=== PATIENT | female | born 1955 | race Caucasian/White ===

== ENCOUNTER 2020-07-07 19:12 | Outpatient (CLI) | payer MEDICARE | END 2020-07-07 19:13 | disposition critical access hospital (66) | LOC: EMS 19:12 | PROVIDERS: ATTEND Surgery | DX: R29.898 Other symptoms and signs involving the musculoskeletal system (principal) | CPT/HCPCS: A0425; A0429 ==

== ENCOUNTER 2020-07-07 19:48 | Emergency (ER) | payer MEDICARE ==
--- NOTE | 2020-07-07 20:05 | ED Physician Documentation ---
PD HPI FOCAL NEURO - Stated complaint Stated Complaint: R LEG NUMBNESS - Chief complaint Chief Complaint: Neuro - History obtained from History obtained from: Patient - History of Present Illness Timing - onset: How many minutes ago (30), Today Timing - duration: Minutes (she had been sitting for not too long, in regular position, and as she got up, noted her right leg feeling weak and not supporting her well. Not mainly from knee down, with some numbness in the foot. She says she held onto furniture and wall to keep from falling and did not feel any weakness in arms) Timing - details: Abrupt onset, Still present (improving enroute) Severity of deficit: Moderate Weakness: Leg, Foot, Right. No: Face, Arm Numbness: Foot, Right, Other (she says she went to mirror and smiled and moved arms to ensure no drooping nor weakness there.). No: Face, Arm Associated symptoms: Fall (2 days ago tripped and fell and struck uribe, with some abrasion and bruising there, but no weakness/numbness of leg at that time.). No: Headache, Nausea / vomiting Contributing factors: negative: Anticoagulated Baseline status: positive: A&OX3, ambulatory, indep Similar symptoms before: Has not had sx before Recently seen: Not recently seen Review of Systems Constitutional: denies: Fever, Chills, Myalgias Eyes: denies: Loss of vision, Decreased vision Nose: denies: Rhinorrhea / runny nose, Congestion Throat: denies: Sore throat Cardiac: denies: Chest pain / pressure, Palpitations Respiratory: denies: Dyspnea, Cough GI: denies: Abdominal Pain, Nausea, Vomiting, Diarrhea Musculoskeletal: denies: Neck pain, Back pain, Extremity pain Neurologic: reports: Focal weakness (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 denies: Near syncope, Syncope PD PAST MEDICAL HISTORY - Past Medical History Past Medical History: No Cardiovascular: None Respiratory: None Neuro: None Endocrine/Autoimmune: None - Present Medications Home Medications: Ambulatory Orders Medication Instructions Recorded Confirmed No Known Home Medications 07/07/20 07/07/20 - Allergies Allergies/Adverse Reactions: Allergies Allergy/AdvReac Type Severity Reaction Status Date / Time Penicillins Allergy Intermediate Hives Verified 07/07/20 20:06 PD ED PE NORMAL - Vitals Vital signs reviewed: Yes - General General: Alert and oriented X 3, No acute distress (not in any pain but does seem somewhat anxious about her symptoms. ), Well developed/nourished - Neck Neck: Supple, no meningeal sign, No adenopathy - Cardiac Cardiac: RRR, No murmur - Respiratory Respiratory: Clear bilaterally - Abdomen Abdomen: Normal bowel sounds, Soft, Non tender - Back Back: No CVA TTP, No spinal TTP - Derm Derm: Normal color, Warm and dry, No rash - Extremities Extremities: Other (There is superficial abrasion and some old bruising in the anterior portion of the lower leg. No obvious deformity. Passive range of motion of the hip and knee are both normal. Active range of motion is good and strong. She stands bedside for the commode on her own.) - Neuro Neuro: Alert and oriented X 3, No motor deficit (She seems to have good strength and movement of her right leg. She is able to lift it at the hip and flex and extend at the knee and range of motion of the ankle. She states it feels just slightly off from normal), No sensory deficit (She feels some numbness in the foot and ankle but she has sensory testing to touch in dermatomal distribution. Normal knee reflex.), Normal speech Eye Opening: Spontaneous Motor: Obeys Commands Verbal: Oriented GCS Score: 15 Results - Vitals Vitals: Vital Signs - 24 hr 07/07/20 07/07/20 07/07/20 19:57 20:01 20:56 Temperature 36.7 C 36.7 C 36.7 C Heart Rate 120 H 120 H 119 H Respiratory 20 21 20 Rate Blood Pressure 183/100 H 183/100 H 173/99 H O2 Saturation 100 100 100 07/07/20 07/07/20 22:01 22:12 Temperature 36.7 C 36.7 C Heart Rate 115 H 115 H Respiratory 18 18 Rate Blood Pressure 170/95 H 170/95 H O2 Saturation 100 100 Oxygen O2 Source Room air - Labs Labs: Laboratory Tests 07/07/20 07/07/20 07/07/20 20:10 20:14 20:14 WBC 13.7 H RBC 4.95 Hgb 14.2 Hct 41.9 MCV 84.6 MCH 28.7 MCHC 33.9 RDW 14.0 Plt Count 377 MPV 9.1 Neut # (Auto) 10.2 H Lymph # (Auto) 2.6 [place] # (Auto) 0.8 Eos # (Auto) 0.1 Baso # (Auto) 0.1 Absolute Nucleated RBC 0.00 Nucleated RBC % 0.0 Sodium 138 Potassium 3.2 L Chloride 106 Carbon Dioxide 22 Anion Gap 10.0 BUN 21 H Creatinine 0.9 Estimated GFR (MDRD) 62 L Glucose 169 H Calcium 9.2 C-Reactive Protein 1.0 Urine Color YELLOW Urine Clarity CLEAR Urine pH 6.5 Ur Specific Pet[place] 1.010 Urine Protein NEGATIVE Urine Glucose (UA) NEGATIVE Urine Ketones NEGATIVE Urine Occult Blood MODERATE H Urine Nitrite NEGATIVE Urine Bilirubin NEGATIVE Urine Urobilinogen 0.2 (NORMAL) Ur Leukocyte Esterase TRACE H Urine RBC 6-10 H Urine WBC 0-3 Ur Squamous Epith Cells FEW Squamous Urine Bacteria Rare Ur Microscopic Review INDICATED Urine Culture Comments INDICATED - Rads (name of study) head CT Radiology: Prelim report reviewed (no acute process), See rad report PD MEDICAL DECISION MAKING - ED course Complexity details: re-evaluated patient (her leg improved here and is a little weak when first here for commode, but then feeling normal at time of ambulation check/ready for discharge. ), considered differential (weakness and some numbness of lower leg below knee. Seems very localized for intracranial process unless very isolated such as lacunar bleed or tumor. Can get CT. Does not sound cerebrovascular per se. Otherwise mostly sounding like lower leg nerve irr itation, perhaps positional as she was sitting. ), d/w patient Departure - Departure Disposition: 01 Home, Self Care Clinical Impression: Transient weakness of right lower extremity Condition: Stable Record reviewed to determine appropriate education?: Yes Instructions: ED Palsy Peroneal Nerve, ED Weakness UKO Comments: Your symptoms being localized to just the lower leg and not involving other areas, and improving now, sound likely to have been an irritation of one of the nerves in the lower leg as opposed to coming centrally from the spine or brain. I would assume this to steadily improve overnight into tomorrow and be back to normal. Activity as tolerated. Recheck if not completely improved over the next day or 2 or if symptoms worsen again. Otherwise Tylenol if needed for mild pains. Continue usual medicines. Discharge Date/Time: 07/07/20 23:01
[2020-07-07 20:20] LABS: BILIRUBIN,URINE NEGATIVE (NEGATIVE); GLUCOSE, URINE (UA) NEGATIVE (NEGATIVE); KETONES,URINE (UA) NEGATIVE (NEGATIVE); LEUKOCYTE ESTERASE, URINE TRACE (NEGATIVE); NITRITE,URINE NEGATIVE (NEGATIVE); OCCULT BLOOD,URINE MODERATE (NEGATIVE); PH,URINE 6.5 PH (5.0-7.5); PROTEIN,URINE NEGATIVE (NEGATIVE); UROBILINOGEN,URINE 0.2 (NORMAL) E.U./dL (NORMAL)
[2020-07-07 20:21] LABS: BASOPHILS # (AUTO) 0.1 10^3/uL (0.0-0.1); BASOPHILS % (AUTO) 0.4 %; EOSINOPHILS # (AUTO) 0.1 10^3/uL (0.0-0.7); EOSINOPHILS % (AUTO) 0.9 %; HGB - HEMOGLOBIN 14.2 g/dL (12.0-16.0); LYMPHOCYTES # (AUTO) 2.6 10^3/uL (1.5-3.5); LYMPHOCYTES % (AUTO) 18.6 %; MEAN CORPUSCULAR HEMOGLOBIN 28.7 pg (27.0-31.0); MEAN CORPUSCULAR HGB CONC 33.9 g/dL (32.0-36.0); MEAN CORPUSCULAR VOLUME 84.6 fL (81.0-99.0); MEAN PLATELET VOLUME 9.1 fL (7.9-10.8); MONOCYTES # (AUTO) 0.8 10^3/uL (0.0-1.0); MONOCYTES % (AUTO) 5.5 %; NEUTROPHILS # (AUTO) 10.2 10^3/uL (1.5-6.6); NEUTROPHILS % (AUTO) 74.3 %; PLT - PLATELET COUNT 377 10^3/uL (130-450); RED BLOOD COUNT 4.95 10^6/uL (4.20-5.40); WHITE BLOOD COUNT 13.7 x10^3/uL (4.8-10.8)
[2020-07-07 20:21] LABS: CLARITY,URINE CLEAR (CLEAR)
[2020-07-07 20:37] LABS: CALCIUM 9.2 mg/dL (8.5-10.3); CREATININE 0.9 mg/dL (0.4-1.0)
[2020-07-07 20:46] LABS: SQUAMOUS EPITHELIAL CELL,UR FEW Squamous (<= Few)
[2020-07-07 20:47] LABS: BACTERIA,URINE Rare /HPF (None Seen)
--- NOTE | 2020-07-07 21:07 | CT Report ---
PROCEDURE: HEAD WO INDICATIONS: right leg weakness, improving TECHNIQUE: Noncontrast 4.5 mm thick angled axial sections acquired from the foramen magnum to the vertex. For r adiation dose reduction, the following was used: automated exposure control, adjustment of mA and/or kV according to patient size. COMPARISON: None. FINDINGS: Image quality: Excellent. CSF spaces: Basal cisterns are patent. No extra-axial fluid collections. Ventricles are normal in size and shape. Brain: No midline shift. No intracranial masses or hemorrhage. Kincaid-white matter interface is norm al. Skull and face: Calvarium and visualized facial bones are intact, without suspicious lesions. Sinuses: Visualized sinuses and mastoids are clear. IMPRESSION: 1. No CT evidence of acute intracranial process. 2. If there is continued clinical concern for acute ischemic injury, MR imaging of the brain is recom mended if there are no contraindications. Reviewed by: Megha Rojas MD on 07/07/2020 9:05 PM PST Approved by: Megha Rojas MD on 07/07/2020 9:05 PM PST Station ID: [id number]
[2020-07-07 22:12] VITALS: BP 170/95
== END 2020-07-07 23:01 | disposition home or self-care (01) ==
LOC: ED 19:48
DX: R29.898 Other symptoms and signs involving the musculoskeletal system (principal); R20.0 Anesthesia of skin; S80.811A Abrasion, right lower leg, initial encounter; W01.0XXA Fall on same level from slipping, tripping and stumbling without subsequent striking against object, initial encounter
CPT/HCPCS: 36415; 70450; 80048; 81001; 81003; 85025; 86140; 87086; 99284

== ENCOUNTER 2021-06-24 12:00 | Outpatient (CLI) | payer MEDICARE | END 2021-06-24 12:01 | disposition EMS.NT | LOC: EMS 12:00 | DX: F41.9 Anxiety disorder, unspecified (principal) ==